=== PATIENT | male | born 1995 | race Caucasian/White ===

== ENCOUNTER 2020-01-04 11:40 | Emergency (ER) | payer SELFPAY ==
[~2020-01-04] VITALS: Ht 190.5 cm; Wt 44.5 kg
[2020-01-04 11:54] VITALS: BP 124/72; TEMP 99.1
[2020-01-04] MEDS ORDERED: ZITHROMAX Z PA250 MG PO (12:32)
[2020-01-04 13:30] VITALS: PULSE 79
== END 2020-01-04 13:30 | disposition home or self-care (01) ==
LOC: COL.ER 11:40
DX: J40 Bronchitis, not specified as acute or chronic (principal); F17.220 Nicotine dependence, chewing tobacco, uncomplicated; Z88.0 Allergy status to penicillin

== ENCOUNTER 2020-12-05 08:43 | Emergency (ER) | payer SELFPAY ==
[~2020-12-05] VITALS: Ht 188 cm; Wt 70.5 kg
[~2020-12-05 08:43] MED LIST: ZITHROMAX Z PA250 MG PO
[2020-12-05 08:49] VITALS: TEMP 98
[2020-12-05 09:15] LABS: BASO % 0.4 % (0.0-2.0); EOS # 0.1 (0.0-0.7); EOS % 2.3 % (0-4.0); GRAN # 3.3 (1.4-6.5); GRAN % 62.1 % (42.2-75.2); HEMATOCRIT 46.7 % (42.0-52.0); HEMOGLOBIN 15.9 g/dl (13.5-18.0); LYMPH # 1.6 (1.2-3.4); MEAN CELL VOLUME 88 fl (80.0-100.0); MEAN CORPUSCULAR HEMOGLOBIN 30 pg (27.0-31.0); MEAN CORPUSCULAR HGB CONC 34 g/dl (33.0-37.0); MEAN PLATELET VOLUME 14.3 fl (7.4-10.4); MONO # 0.3 (0.1-0.6); PLATELET COUNT 99 K/mm3 (130-400); RED BLOOD COUNT 5.31 M/mm3 (4.20-5.60); REDCELL DISTRIBUTION WIDTH-CV 12.3 % (11.5-14.5)
[2020-12-05 09:24] LABS: PROTHROMBIN TIME 11.5 SECONDS (9.7-12.8)
[2020-12-05 09:26] LABS: PARTIAL THROMBOPLASTIN TIME 36.3 SECONDS (26.0-37.0)
[2020-12-05 09:33] LABS: ALANINE AMINOTRANSFERASE 19 U/L (4-49); ALBUMIN 4.7 gm/dL (3.5-5.0); ALKALINE PHOSPHATASE 42 U/L (50-136); ANION GAP 7 mmol/L (7-16); AST,SGOT 32 U/L (15-37); BLOOD UREA NITROGEN 17 mg/dL (9-20); C-REACTIVE PROTEIN < 0.5 mg/dL (0.0-0.9); CALCIUM 9.7 mg/dL (8.4-10.2); CARBON DIOXIDE 31 mmol/L (22-30); CHLORIDE 103 mmol/L (98-107); CREATININE, serum 1.14 (0.66-1.25); GLUCOSE 75 mg/dL (74-106); POTASSIUM 4.1 mmol/L (3.4-5.0); SODIUM 142 mmol/L (137-145); TOTAL PROTEIN 7.1 gm/dL (6.4-8.2)
[2020-12-05 09:43] LABS: TROPONIN-I < 0.012 ng/mL (0.000-0.035)
[2020-12-05 10:30] VITALS: BP 137/82; PULSE 63
== END 2020-12-05 10:30 | disposition home or self-care (01) ==
LOC: COL.ER 08:43
PROVIDERS: Family Medicine
DX: R07.9 Chest pain, unspecified (principal); R00.2 Palpitations; F17.200 Nicotine dependence, unspecified, uncomplicated; Z88.0 Allergy status to penicillin

== ENCOUNTER → 2020-12-29 | Outpatient (CLI) | payer SELFPAY | END | disposition still patient (30) | LOC: COL.RAD 12-16 07:30 | DX: D69.3 Immune thrombocytopenic purpura (principal); R16.1 Splenomegaly, not elsewhere classified ==